=== PATIENT | male | born 1980 | race Caucasian/White ===

== ENCOUNTER 2017-08-23 15:38 | Emergency (ER) | payer MEDICAID ==
--- NOTE | 2017-08-23 17:09 | EDM.PDOC ---
ED HPI GENERAL MEDICAL PROBLEM - General Chief Complaint: Abdominal Pain Stated Complaint: ABDOMINAL PAIN Time Seen by Provider: 08/23/17 16:46 - History of Present Illness INITIAL COMMENTS - FREE TEXT/NARRATIVE: HISTORY AND PHYSICAL: History of present illness: The patient is a 37-year-old male with a history of a left pelvic kidney nephrectomy with postoperative complication which includes an unusual abdominal hernia in the inguinal area that has been recurrent. The patient had some surgery performed at [facility] after the nephrectomy which was done here and is scheduled to be seen on every 14 for preoperative evaluation for repair of this hernia. The patient has had a recent CAT scan performed on August 06 which I reviewed and saw Dr. Najera our urologist yesterday to discuss this recurrent hernia. According to the patient it slips in and out and he is usually able to reduce it but he is getting concerned because of the size and the discomfort associated with it. Patient was given Ono 5/325 which she took and he did not feel comfortable taking it as it made his next step and he felt worse after taking it and other body locations. Today the hernia slipped out and he was unable to get it back in which is why he presented to the ED but while in the waiting room he laid down and elevate his legs and was able to reduce the hernia. This is what he normally does to reduce the hernia patient is very frustrated as he wants to get this repaired. He has been eating and drinking normally and passing his urine without issues. Here in the ED he is asymptomatic. Review of systems: As per history of present illness and below otherwise all systems reviewed and negative. Past medical history: As per history of present illness and as reviewed below otherwise noncontributory. Surgical history: As per history of present illness and as reviewed below otherwise noncontributory. Social history: No reported history of drug or alcohol abuse. Family history: As per history of present illness and as reviewed below otherwise noncontributory. Physical exam: Gen.: Well-developed well-nourished man who is nontoxic vital signs been reviewed by me HEENT: Atraumatic, normocephalic, negative for conjunctival pallor or scleral icterus, mucous membranes moist, throat clear, neck supple, nontender, trachea midline. Lungs: Clear to auscultation, breath sounds equal bilaterally, chest nontender. Heart: S1S2, regular rate and rhythm no overt murmurs Abdomen: Soft, nondistended, nontender. NABS. Patient has a well-healed midabdominal scar which is nontender and has no evidence of any abdominal wall hernias. On palpation of the area there is no overt hernia appreciated or hernial defect and no tenderness to palpation. Pelvis: Stable nontender. Genitourinary: No hernial masses or defects appreciated in the left inguinal area which is the location of the patient's hernial problems. Testicles are descended bilaterally and are not swollen Rectal: Deferred. Extremities: Atraumatic, negative for cords or calf pain. Neurovascular unremarkable. Neuro: Awake, alert, oriented. Cranial nerves II through XII unremarkable. Cerebellum unremarkable. Motor and sensory unremarkable throughout. Exam nonfocal. Diagnostics: [] Therapeutics: [] 1654: Case was discussed with Dr. Louise who tells me that he is willing to do the repair here if the patient would like to do that otherwise he can proceed to go to [facility] as scheduled. I've inform the patient of this conversation and that there is no further testing or evaluation needs to be performed here. He is comfortable with this and will continue to reduce the hernia as needed and return here only if he is unable to do so. Impression: Recurrent inguinal hernia stable Definitive disposition and diagnosis as appropriate pending reevaluation and review of above. Left Lower Abdominal Pain Score (Numeric/FACES): 3 - Related Data Allergies Allergy/AdvReac Type Severity Reaction Status Date / Time No Known Allergies Allergy Verified 08/23/17 16:23 Home Meds: Home Meds Hydrocodone/Acetaminophen [Hydrocodon-Acetaminoph 7.5-325] 1 - 2 tab PO ASDIRECTED PRN 01/03/17 [History] Hydrocodone/Acetaminophen [Lorcet 5-325 mg Tablet] 1 each PO Q6H PRN #30 tablet 01/10/17 [Rx] Past Medical History Gastrointestinal History: Reports: GERD Genitourinary History: Reports: Other (See Below) Other Genitourinary History: kidney mass Musculoskeletal History: Reports: Fracture Other Musculoskeletal History: hx fx collarbone, rt hand, forearm and lt ankle Neurological History: Reports: Other (See Below) Other Neuro History: "possible concussion" - Past Surgical History Head Surgeries/Procedures: Reports: None GI Surgical History: Reports: Appendectomy Social & Family History - Family History Family Medical History: Noncontributory - Tobacco Use Smoking Status *Q: Former Smoker Years of Tobacco use: 10 Packs/Tins Daily: 0.1 Used Tobacco, but Quit: Yes Month Tobacco Last Used: jul 2017 - Caffeine Use Caffeine Use: Reports: None - Recreational Drug Use Recreational Drug Use: No Drug Use in Last 12 Months: Yes Recreational Drug Type: Reports: Marijuana/Hashish Recreational Drug Use Frequency: Socially Recreational Drug Last Use: 01/02/17 ED ROS GENERAL - Review of Systems Review Of Systems: ROS reveals no pertinent complaints other than HPI. ED EXAM, GENERAL - Physical Exam Exam: See Below (See dictation) Course - Vital Signs Last Recorded V/S: Last Vital Signs Temp 37.1 C 08/23/17 16:32 Pulse 86 08/23/17 16:32 Resp 18 08/23/17 16:32 BP 149/79 H 08/23/17 16:32 Pulse Ox 95 08/23/17 16:32 Departure - Departure Time of Disposition: 17:07 Disposition: Home, Self-Care 01 Condition: Good Clinical Impression: Inguinal hernia Qualifiers: Obstruction and gangrene presence: without obstruction or gangrene Laterality: unilateral Recurrence: recurrent Qualified Code(s): K40.91 - Unilateral inguinal hernia, without obstruction or gangrene, recurrent - Discharge Information Referrals: PCP,None [Primary Care Provider] - Additional Instructions: The following information is given to patients seen in the emergency department who are being discharged to home. This information is to outline your options for follow-up care. We provide all patients seen in our emergency department with a follow-up referral. The need for follow-up, as well as the timing and circumstances, are variable depending upon the specifics of your emergency department visit. If you don't have a primary care physician on staff, we will provide you with a referral. We always advise you to contact your personal physician following an emergency department visit to inform them of the circumstance of the visit and for follow-up with them and/or the need for any referrals to a consulting specialist. The emergency department will also refer you to a specialist when appropriate. This referral assures that you have the opportunity for followup care with a specialist. All of these measure are taken in an effort to provide you with optimal care, which includes your followup. Under all circumstances we always encourage you to contact your private physician who remains a resource for coordinating your care. When calling for followup care, please make the office aware that this follow-up is from your recent emergency room visit. If for any reason you are refused follow-up, please contact the [facility] emergency department at and ask to speak to the emergency department charge nurse. [facility] [place] [address] Najera's office on Friday to pursue operative for. This hernia here as you choose. Keep your appointments at [facility] you choose to pursue having the hernia repair there. Continue to reduce the hernia as you need and return to ER as needed and as discussed. Please use the muscle relaxers given to today as needed when the hernia recurs as it may assist with the discomfort and muscle relaxation to assist reduction area
[2017-08-23 17:22] VITALS: BP 136/87
== END 2017-08-23 17:16 | disposition home or self-care (01) ==
LOC: MW.ED 15:38
DX: K40.91 Unilateral inguinal hernia, without obstruction or gangrene, recurrent (principal); Z87.891 Personal history of nicotine dependence
CPT/HCPCS: 99282; 99283

== ENCOUNTER 2018-02-03 12:27 | Day surgery (SDC) | payer BC, MEDICAID ==
[~2018-02-03 12:27] MED LIST: Betamethasone Acetate/Betamethasone Sod Phosphate 30 MG/5 ML MDV ONE; Iopamidol 408 MG/ML 50 ML SDV ONE; Lidocaine 2% 5 ML SDV ONE; Ropivacaine 0.5% 5 MG/ML 30 ML SDV ONE
--- NOTE | 2018-02-04 09:25 | OR ---
SURGEON: Nury Amaya D.O. DATE OF PROCEDURE: 02/03/2018 OR STAFF PRESENT: 1. Sameer Moses RN. 2. Sameer Horowitz RN. 3. Mary Ann Raymond, RT. WOUND CLASSIFICATION: I. PREOPERATIVE DIAGNOSES: 1. Chronic pelvic pain. 2. 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 3. Inguinal neuralgia. 4. Neuropathic pain. POSTOPERATIVE DIAGNOSES: 1. Chronic pelvic pain. 2. 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 3. Inguinal neuralgia. 4. Neuropathic pain. PROCEDURES PERFORMED: 1. Caudal epidural steroid injection. 2. Fluoroscopic guidance for needle placement. 3. Local with oral valium for sedation. SCREENING QUESTIONS: The patient answered "no" to all of the following questions: 1. Are you allergic to latex? 2. Do you have a bleeding disorder? 3. Do you have any current local or systemic infections? 4. Are you taking any anti-inflammatories or blood thinners? 5. Do you have any joint replacements, heart valve replacements, or a pacemaker? DESCRIPTION OF PROCEDURE: The patient had the procedure thoroughly explained including all possible risks , benefits and alternatives. Consent was signed in my clinic indicating understanding and willingness to proceed. The patient presented to [facility] and was escorted to the dressing room to disrobe and change into a hospital gown. Preoperative vital signs were taken and stable. The patient reported that Valium was taken prior to the procedure. The patient was brought back to the procedure room and placed in the prone position on the procedure room table. A pillow was placed under the hips in order to flatten the lumbar lordosis. The back was prepped with ChloraPrep and sterilely draped. All personnel in the operating room were dressed in appropriate attire including surgical scrubs, head and shoe covers. This was to ensure sterility while in the treatment room. During the time fluoroscopy was in use, all personnel in the operating room wore lead robins with thyroid collars. Sterile technique was used throughout the procedure. The patient was awake and conversant throughout the procedure. There was no evidence of infection at the site of needle insertion. Skeletal landmarks were identified under fluoroscopy for the lumbar epidural. Skin was anesthetized with 2% lidocaine with a sterile 27-gauge 1.5 inch needle. Then a 20-gauge Tuohy epidural needle was placed in the epidural space with loss of resistance technique under fluoroscopic guidance. No heme, cerebrospinal fluid, or paresthesias were noted. Isovue-200 contrast dye was injected in 0.2 cubic centimeter increments and seen to outline the epidural space in both AP and lateral views. There was no intravascular flow pattern observed under live fluoroscopy. Then 12 milligrams of Celestone was slowly injected after negative aspiration. The patient tolerated the procedure well. Vital signs were stable during and after the procedure. The staff escorted the patient to the recovery area and the patient was released in stable condition after a brief stay in the recovery room monitored by the nurse. The patient was given both oral and written discharge and follow up instructions with recommendation to follow up given for 2-3 weeks. The patient voiced understanding including understanding of those signs and symptoms that would require emergency care. The patient knows how to contact the office if there are any additional problems or questions in the meantime. PREOPERATIVE PAIN: 8/10. POSTOPERATIVE PAIN: 2/10. FOLLOWUP: In the pain clinic in 3 weeks. MAXIMO / LIMA /[id number] [email or web address]
== END 2018-02-03 14:00 | disposition home or self-care (01) ==
LOC: MW.SDS 12:27
PROVIDERS: ATTEND Anesthesiology
DX: G89.29 Other chronic pain (principal); R10.2 Pelvic and perineal pain; G57.82 Other specified mononeuropathies of left lower limb; I10 Essential (primary) hypertension; F17.210 Nicotine dependence, cigarettes, uncomplicated
CPT/HCPCS: 62323; J0702; J2795; Q9966

== ENCOUNTER 2018-03-12 11:57 | Day surgery (SDC) | payer BC, MEDICAID ==
[2018-03-12] MEDS ORDERED: Betamethasone Acetate/Betamethasone Sod Phosphate 30 MG/5 ML MDV ONE (14:37)
[2018-03-12] MEDS ORDERED: Iopamidol 408 MG/ML 50 ML SDV ONE (14:37)
[2018-03-12] MEDS ORDERED: Lidocaine 2% 5 ML SDV ONE (14:37)
[2018-03-12] MEDS ORDERED: Ropivacaine 0.5% 5 MG/ML 30 ML SDV ONE (14:37)
[2018-03-12] MEDS ORDERED: Sodium Bicarbonate 8.4% 50 MEQ/50 ML SDV ONE (14:37)
--- NOTE | 2018-03-12 16:44 | OR ---
SURGEON: Nury Amaya D.O. DATE OF PROCEDURE: 03/12/2018 OR STAFF PRESENT: 1. Sydnee Moses RN. 2. Imer Reardon RN. 3. RT Navid. WOUND CLASSIFICATION: I. PREOPERATIVE DIAGNOSES: 1. Lumbar degenerative disk disease. 2. Lumbar herniated disk. 3. Lumbar radiculopathy, chronic. 4. Male perineum pain. 5. Chronic neuropathic pain syndrome. POSTOPERATIVE DIAGNOSES: 1. Lumbar degenerative disk disease. 2. Lumbar herniated disk. 3. Lumbar radiculopathy, chronic. 4. Male perineum pain. 5. Chronic neuropathic pain syndrome. PROCEDURES PERFORMED: 1. Lumbar interlaminar epidural steroid injection at L4-5. 2. Fluoroscopic guidance for needle placement. 3. Local with oral valium for sedation. SCREENING QUESTIONS: The patient answered "no" to all of the following questions: 1. Are you allergic to latex? 2. Do you have a bleeding disorder? 3. Do you have any current local or systemic infections? 4. Are you taking any anti-inflammatories or blood thinners? 5. Do you have any joint replacements, heart valve replacements, or a pacemaker? DESCRIPTION OF PROCEDURE: The patient had the procedure thoroughly explained including all possible risks, benefits and alternatives. Consent was signed in my clinic indicating understanding and willingness to proceed. The patient presented to [facility] and was escorted to the dressing room to disrobe and change into a hospital gown. Preoperative vital signs were taken and stable. The patient reported that Valium was taken prior to the procedure. The patient was brought back to the procedure room and placed in the prone position on the procedure room table. A pillow was placed under the hips in order to flatten the lumbar lordosis. The back was prepped with ChloraPrep and sterilely draped. All personnel in the operating room were dressed in appropriate attire including surgical scrubs, head and shoe covers. This was to ensure sterility while in the treatment room. During the time fluoroscopy was in use, all personnel in the operating room wore lead robins with thyroid collars. Sterile technique was used throughout the procedure. The patient was awake and conversant throughout the procedure. There was no evidence of infection at the site of needle insertion. Skeletal landmarks were identified under fluoroscopy for the lumbar epidural. Skin was anesthetized with 2% lidocaine with a sterile 27-gauge 1.5 inch needle. Then, a 20-gauge Tuohy epidural needle was placed in the epidural space with loss of resistance technique under fluoroscopic guidance. No heme, cerebrospinal fluid, or paresthesias were noted. Isovue-200 contrast dye was injected in 0.2 cubic centimeter increments and seen to outline the epidural space in both AP and lateral views. There was no intravascular flow pattern observed under live fluoroscopy. Then, 12 milligrams of Celestone was slowly injected after negative aspiration. The patient tolerated the procedure well. Vital signs were stable during and after the procedure. The staff escorted the patient to the recovery area and the patient was released in stable condition after a brief stay in the recovery room monitored by the nurse. The patient was given both oral and written discharge and follow up instructions with recommendation to follow up given for 2-3 weeks. The patient voiced understanding including understanding of those signs and symptoms that would require emergency care. The patient knows how to contact the office if there are any additional problems or questions in the meantime. PREOPERATIVE PAIN: 8/10. POSTOPERATIVE PAIN: 2/10. FOLLOWUP: Follow up in the pain clinic in 3 weeks. MAXIMO / LIMA /[id number]
== END 2018-03-12 14:00 | disposition home or self-care (01) ==
LOC: MW.SDS 11:57
PROVIDERS: ATTEND Anesthesiology
DX: M51.16 Intervertebral disc disorders with radiculopathy, lumbar region (principal); M79.2 Neuralgia and neuritis, unspecified; M47.816 Spondylosis without myelopathy or radiculopathy, lumbar region; R10.2 Pelvic and perineal pain; M47.894 Other spondylosis, thoracic region; M51.37 Other intervertebral disc degeneration, lumbosacral region; I10 Essential (primary) hypertension; F17.210 Nicotine dependence, cigarettes, uncomplicated; G47.30 Sleep apnea, unspecified; K21.9 Gastro-esophageal reflux disease without esophagitis; F41.9 Anxiety disorder, unspecified; Z79.899 Other long term (current) drug therapy
CPT/HCPCS: 62323; J0702; J2795; Q9966

== ENCOUNTER 2018-10-20 11:57 | Day surgery (SDC) | payer BC ==
[2018-10-20] MEDS ORDERED: Lidocaine 2% 5 ML SDV ONE (12:00)
[2018-10-20] MEDS ORDERED: Ropivacaine 0.5% 5 MG/ML 30 ML SDV ONE (12:00)
[2018-10-20] MEDS ORDERED: Betamethasone Acetate/Betamethasone Sod Phosphate 30 MG/5 ML MDV ONE (12:00)
[2018-10-20] MEDS ORDERED: Iopamidol 408 MG/ML 50 ML SDV ONE (12:01)
--- NOTE | 2018-10-20 16:42 | OR ---
SURGEON: Nury Amaya D.O. DATE OF PROCEDURE: 10/20/2018 OR STAFF PRESENT: 1. Luz Elena Clement RN. 2. Sydnee Henson RN. 3. Alissa Eastman RT. PREOPERATIVE DIAGNOSIS: Lumbar degenerative disk disease at L4-5,L5-S1. Lumbar spondylosis Chronic low back pain POSTOPERATIVE DIAGNOSIS: same PROCEDURES PERFORMED: 1. Lumbar epidural steroid injection, interlaminar, at L4-5. 2. Fluoroscopic guidance for needle placement. 3. Local with oral Valium for sedation. SCREENING QUESTIONS: The patient answered "no" to all of the following questions: 1. Are you allergic to latex? 2. Do you have a bleeding disorder? 3. Do you have any current local or systemic infections? 4. Are you taking any anti-inflammatories or blood thinners? 5. Do you have any joint replacements, heart valve replacements, or a pacemaker? DESCRIPTION OF PROCEDURE: The patient had the procedure thoroughly explained including all possible risks, benefits and alternatives. Consent was signed in my clinic indicating understanding and willingness to proceed. The patient presented to [facility] and was escorted to the dressing room to disrobe and change into a hospital gown. Preoperative vital signs were taken and stable. The patient reported that Valium was taken prior to the procedure. The patient was brought back to the procedure room and placed in the prone position on the procedure room table. A pillow was placed under the hips in order to flatten the lumbar lordosis. The back was prepped with ChloraPrep and sterilely draped. All personnel in the operating room were dressed in appropriate attire including surgical scrubs, head and shoe covers. This was to ensure sterility while in the treatment room. During the time fluoroscopy was in use, all personnel in the operating room wore lead robins with thyroid collars. Sterile technique was used throughout the procedure. The patient was awake and conversant throughout the procedure. There was no evidence of infection at the site of needle insertion. Skeletal landmarks were identified under fluoroscopy for the lumbar epidural. Skin was anesthetized with 2% lidocaine with a sterile 27-gauge 1.5 inch needle. Then a 20-gauge Tuohy epidural needle was placed in the epidural space with loss of resistance technique under fluoroscopic guidance. No heme, cerebrospinal fluid, or paresthesias were noted. Isovue-200 contrast dye was injected in 0.2 cubic centimeter increments and seen to outline the epidural space in both AP and lateral views. There was no intravascular flow pattern observed under live fluoroscopy. Then 12 milligrams of Celestone was slowly injected after negative aspiration. The patient tolerated the procedure well. Vital signs were stable during and after the procedure. The staff escorted the patient to the recovery area and the patient was released in stable condition after a brief stay in the recovery room monitored by the nurse. The patient was given both oral and written discharge and follow up instructions with recommendation to follow up given for 2-3 weeks. The patient voiced understanding including understanding of those signs and symptoms that would require emergency care. The patient knows how to contact the office if there are any additional problems or questions in the meantime. PREOPERATIVE PAIN: 7/10. POSTOPERATIVE PAIN: /10. FOLLOWUP: Follow up in the Pain Clinic in 3 weeks. MAXIMO / LIMA /[id number] [email or web address]
== END 2018-10-20 13:55 | disposition home or self-care (01) ==
LOC: MW.SDS 11:57
PROVIDERS: ATTEND Anesthesiology
DX: M51.16 Intervertebral disc disorders with radiculopathy, lumbar region (principal); M79.18 Myalgia, other site; M47.26 Other spondylosis with radiculopathy, lumbar region; M79.2 Neuralgia and neuritis, unspecified; F17.210 Nicotine dependence, cigarettes, uncomplicated; K21.9 Gastro-esophageal reflux disease without esophagitis; F41.9 Anxiety disorder, unspecified
CPT/HCPCS: 62323; J0702; J2795; Q9966; J2001

== ENCOUNTER 2019-02-23 10:42 | Emergency (ER) | payer SELFPAY ==
[2019-02-23] MEDS ORDERED: Lidocaine 2% Viscous Solution 15 ML Cup PO ONE (11:03)
[2019-02-23] MEDS ORDERED: Benzocaine 20% Topical Spray UD MUCMEM ONE (11:03)
--- NOTE | 2019-02-23 11:09 | EDM.PDOC ---
ED HPI GENERAL MEDICAL PROBLEM - General Chief Complaint: General Stated Complaint: TOOTH ACHE Time Seen by Provider: 02/23/19 11:00 Source of Information: Reports: Patient History Limitations: Reports: No Limitations - History of Present Illness INITIAL COMMENTS - FREE TEXT/NARRATIVE: History of present illness: []Patient has chronic recurrent pain in a decayed tooth he is unable to have removed due to lack of funding. Patient states that he's had recurrent pain and knows that his face will swell within 24 hours if he doesn't receive antibiotics. At this time denies any fevers or chills. Review of systems: As per history of present illness and below otherwise all systems reviewed and negative. Past medical history: As per history of present illness and as reviewed below otherwise noncontributory. Surgical history: As per history of present illness and as reviewed below otherwise noncontributory. Social history: No reported history of drug or alcohol abuse. Family history: As per history of present illness and as reviewed below otherwise noncontributory. Physical exam: General: Well developed, well nourished in NAD HEENT: DK, normocephalic, pupils reactive, negative for conjunctival pallor or scleral icterus, mucous membranes moist, throat clear, neck supple, nontender, trachea midline. Lungs: Clear to auscultation, breath sounds equal bilaterally, chest nontender. Heart: S1S2, regular, negative for clicks, rubs, or JVD. Abdomen: NABS, Soft, nondistended, nontender. Negative for masses or hepatosplenomegaly. Negative for costovertebral tenderness. Pelvis: Stable nontender. Genitourinary: Deferred. Rectal: Deferred. Extremities: Atraumatic, negative for cords or calf pain. Neurovascular unremarkable. Neuro: Awake, alert, oriented. Cranial nerves II through XII unremarkable. Cerebellum unremarkable. Motor and sensory unremarkable throughout. Exam nonfocal. Skin:warm and dry Diagnostics: None Therapeutics: None ED Course: Stable Impression: Chronic Dental pain Prescriptions: Penicillin, dental balls Plan: Follow-up with primary care Definitive disposition and diagnosis as appropriate pending reevaluation and review of above. Teeth Pain Score (Numeric/FACES): 7 - Related Data Allergies Allergy/AdvReac Type Severity Reaction Status Date / Time No Known Allergies Allergy Verified 07/08/18 15:52 Home Meds: Home Meds Gabapentin [Neurontin] 300 mg PO QID 07/08/18 [History] Mirtazapine [Remeron] 15 mg PO BEDTIME 07/08/18 [History] Penicillin V Potassium 500 mg PO Q6HR #40 tab 02/23/19 [Rx] Past Medical History Gastrointestinal History: Reports: GERD Genitourinary History: Reports: Other (See Below) Other Genitourinary History: kidney mass Musculoskeletal History: Reports: Fracture Other Musculoskeletal History: hx fx collarbone, rt hand, forearm and lt ankle Neurological History: Reports: Other (See Below) Other Neuro History: "possible concussion" - Infectious Disease History Infectious Disease History: Reports: None - Past Surgical History Head Surgeries/Procedures: Reports: None HEENT Surgical History: Reports: Oral Surgery GI Surgical History: Reports: Appendectomy, Hernia Repair/Other Male Surgical History: Reports: Kidney Stone Extraction, Lithotripsy (ESWL) Social & Family History - Family History Family Medical History: Noncontributory - Caffeine Use Caffeine Use: Reports: Other Caffeine Use Comment: Very rare caffeine use - Recreational Drug Use Recreational Drug Use: No ED ROS GENERAL - Review of Systems Review Of Systems: See Below ED EXAM, GENERAL - Physical Exam Exam: See Below (History of present illness) Course - Vital Signs Last Recorded V/S: Last Vital Signs Temp 97.3 F 02/23/19 10:51 Pulse 91 02/23/19 10:51 Resp 17 02/23/19 10:51 BP 137/91 H 02/23/19 10:51 Pulse Ox 97 02/23/19 10:51 Departure - Departure Time of Disposition: 11:09 Disposition: Home, Self-Care 01 Condition: Good Clinical Impression: Chronic dental pain - Discharge Information *PRESCRIPTION DRUG MONITORING PROGRAM REVIEWED*: No *COPY OF PRESCRIPTION DRUG MONITORING REPORT IN PATIENT CRISTINA: No Prescriptions: Penicillin V Potassium 500 mg PO Q6HR #40 tab Referrals: PCP,None [Primary Care Provider] - Additional Instructions: The following information is given to patients seen in the emergency department who are being discharged to home. This information is to outline your options for follow-up care. We provide all patients seen in our emergency department with a follow-up referral. The need for follow-up, as well as the timing and circumstances, are variable depending upon the specifics of your emergency department visit. If you don't have a primary care physician on staff, we will provide you with a referral. We always advise you to contact your personal physician following an emergency department visit to inform them of the circumstance of the visit and for follow-up with them and/or the need for any referrals to a consulting specialist. The emergency department will also refer you to a specialist when appropriate. This referral assures that you have the opportunity for follow-up care with a specialist. All of these measure are taken in an effort to provide you with optimal care, which includes your follow-up. Under all circumstances we always encourage you to contact your private physician who remains a resource for coordinating your care. When calling for follow-up care, please make the office aware that this follow-up is from your recent emergency room visit. If for any reason you are refused follow-up, please contact the [facility] Emergency Department at and asked to speak to the emergency department charge nurse. [facility] [address] [place] [phone]
[2019-02-23 11:19] VITALS: BP 142/83; PULSE 94
== END 2019-02-23 11:19 | disposition home or self-care (01) ==
LOC: MW.ED 10:42
DX: K08.89 Other specified disorders of teeth and supporting structures (principal); G89.29 Other chronic pain
CPT/HCPCS: 99282; A9270

== ENCOUNTER 2021-05-21 19:57 | Emergency (ER) | payer SELFPAY ==
--- NOTE | 2021-05-21 20:11 | EDM.PDOC ---
ED HPI GENERAL MEDICAL PROBLEM - General Chief Complaint: Behavioral/Psych Stated Complaint: EMS Time Seen by Provider: 05/21/21 19:59 Source of Information: Reports: Patient History Limitations: Reports: Intoxication - History of Present Illness INITIAL COMMENTS - FREE TEXT/NARRATIVE: Patient is a 41-year-old male who is brought in by EMS after his brother found him on the floor. Patient states has been drinking all day. Patient was taking medication but stopped because he no longer feels he was to take those meds because he does not really make him feel. Patient unsure if he hit his head or not. He states he did have a large amount alcohol more than he normally drinks. Patient denies any pain now patient is only ANO x1 but denies any medical complaints. - Related Data Allergies Allergy/AdvReac Type Severity Reaction Status Date / Time No Known Allergies Allergy Verified 05/21/21 20:11 Home Meds: Home Meds Desvenlafaxine Succinate [Desvenlafaxine Succinate ER] 100 mg PO DAILY 05/21/21 [History] LORazepam [Lorazepam] 2 mg PO DAILY 05/21/21 [History] Zolpidem Tartrate 10 mg PO DAILY 05/21/21 [History] carBAMazepine [Carbamazepine] 100 mg PO DAILY 05/21/21 [History] Past Medical History Gastrointestinal History: Reports: GERD Genitourinary History: Reports: Other (See Below) Other Genitourinary History: kidney mass Musculoskeletal History: Reports: Fracture Other Musculoskeletal History: hx fx collarbone, rt hand, forearm and lt ankle Neurological History: Reports: Other (See Below) Other Neuro History: "possible concussion" - Infectious Disease History Infectious Disease History: Reports: None - Past Surgical History Head Surgeries/Procedures: Reports: None HEENT Surgical History: Reports: Oral Surgery GI Surgical History: Reports: Appendectomy, Hernia Repair/Other Male Surgical History: Reports: Kidney Stone Extraction, Lithotripsy (ESWL) Social & Family History - Family History Family Medical History: No Pertinent Family History - Caffeine Use Caffeine Use: Reports: Other Caffeine Use Comment: Very rare caffeine use ED ROS GENERAL - Review of Systems Review Of Systems: See Below Constitutional: Reports: No Symptoms HEENT: Reports: No Symptoms Respiratory: Reports: No Symptoms Cardiovascular: Reports: No Symptoms Endocrine: Reports: No Symptoms GI/Abdominal: Reports: No Symptoms : Reports: No Symptoms Musculoskeletal: Reports: No Symptoms Skin: Reports: No Symptoms Neurological: Reports: No Symptoms Psychiatric: Reports: No Symptoms Hematologic/Lymphatic: Reports: No Symptoms Immunologic: Reports: No Symptoms ED EXAM, GENERAL - Physical Exam Exam: See Below Exam Limited By: Intoxication General Appearance: Alert, No Apparent Distress Eye Exam: Bilateral Eye: EOMI, PERRL Ears: Normal External Exam Head: Atraumatic Respiratory/Chest: No Respiratory Distress, Lungs Clear, Normal Breath Sounds Cardiovascular: Normal Peripheral Pulses, Regular Rate, Rhythm GI/Abdominal: Normal Bowel Sounds, Soft, Non-Tender Extremities: Normal Inspection Neurological: Alert, Normal Gait, No Motor/Sensory Deficits #1 Interpretation EKG Date: 05/21/21 Time: 20:58 Rhythm: NSR Rate (Beats/Min): 81 ST-T: Normal Course - Vital Signs Last Recorded V/S: Last Vital Signs Temp 98.5 F 05/21/21 20:12 Pulse 92 05/21/21 21:03 Resp 18 05/21/21 21:03 BP 141/87 H 05/21/21 21:03 Pulse Ox 97 05/21/21 21:03 - Orders/Labs/Meds Labs: Laboratory Tests 05/21/21 05/21/21 05/21/21 Range/Units 20:17 20:17 20:17 WBC 5.54 (4.0-11.0) K/uL RBC 4.47 L (4.50-5.90) M/uL Hgb 14.0 (13.0-17.0) g/dL Hct 40.4 (38.0-50.0) % MCV 90.4 (80.0-98.0) fL MCH 31.3 (27.0-32.0) pg MCHC 34.7 (31.0-37.0) g/dL RDW Std Deviation 44.2 (28.0-62.0) fl RDW Coeff of Susanne 13 (11.0-15.0) % Plt Count 331 (150-400) K/uL MPV 9.40 (7.40-12.00) fL Neut % (Auto) 44.4 L (48.0-80.0) % Lymph % (Auto) 46.0 H (16.0-40.0) % [place] % (Auto) 7.4 (0.0-15.0) % Eos % (Auto) 2.0 (0.0-7.0) % Baso % (Auto) 0.2 (0.0-1.5) % Neut # (Auto) 2.5 (1.4-5.7) K/uL Lymph # (Auto) 2.6 H (0.6-2.4) K/uL [place] # (Auto) 0.4 (0.0-0.8) K/uL Eos # (Auto) 0.1 (0.0-0.7) K/uL Baso # (Auto) 0.0 (0.0-0.1) K/uL Nucleated RBC % 0.0 /100WBC Nucleated RBCs # 0 K/uL Sodium 138 (136-148) mmol/L Potassium 3.4 L (3.5-5.1) mmol/L Chloride 100 (98-107) mmol/L Carbon Dioxide 28.9 (21.0-32.0) mmol/L BUN 13 (7.0-18.0) mg/dL Creatinine 0.9 (0.8-1.3) mg/dL Est Cr Clr Drug Dosing TNP Estimated GFR (MDRD) > 60.0 ml/min Glucose 112 H (74-106) mg/dL Calcium 8.3 L (8.5-10.1) mg/dL Total Bilirubin 0.2 (0.2-1.0) mg/dL AST 14 L (15-37) IU/L ALT 33 (14-63) IU/L Alkaline Phosphatase 59 (46-116) U/L Troponin I < 0.050 (0.000-0.056) ng/mL Total Protein 7.5 (6.4-8.2) g/dL Albumin 4.1 (3.4-5.0) g/dL Globulin 3.4 (2.6-4.0) g/dL Albumin/Globulin Ratio 1.2 (0.9-1.6) Urine Opiates Screen (NEGATIVE) Ur Oxycodone Screen (NEGATIVE) Urine Methadone Screen (NEGATIVE) Ur Barbiturates Screen (NEGATIVE) Ur Phencyclidine Scrn (NEGATIVE) Ur Amphetamine Screen (NEGATIVE) U Methamphetamines Scrn (NEGATIVE) U Benzodiazepines Scrn (NEGATIVE) U Cocaine Metab Screen (NEGATIVE) U Marijuana (THC) Screen (NEGATIVE) Ethyl Alcohol 244 mg/dL 05/21/21 Range/Units 21:20 WBC (4.0-11.0) K/uL RBC (4.50-5.90) M/uL Hgb (13.0-17.0) g/dL Hct (38.0-50.0) % MCV (80.0-98.0) fL MCH (27.0-32.0) pg MCHC (31.0-37.0) g/dL RDW Std Deviation (28.0-62.0) fl RDW Coeff of Susanne (11.0-15.0) % Plt Count (150-400) K/uL MPV (7.40-12.00) fL Neut % (Auto) (48.0-80.0) % Lymph % (Auto) (16.0-40.0) % [place] % (Auto) (0.0-15.0) % Eos % (Auto) (0.0-7.0) % Baso % (Auto) (0.0-1.5) % Neut # (Auto) (1.4-5.7) K/uL Lymph # (Auto) (0.6-2.4) K/uL [place] # (Auto) (0.0-0.8) K/uL Eos # (Auto) (0.0-0.7) K/uL Baso # (Auto) (0.0-0.1) K/uL Nucleated RBC % /100WBC Nucleated RBCs # K/uL Sodium (136-148) mmol/L Potassium (3.5-5.1) mmol/L Chloride (98-107) mmol/L Carbon Dioxide (21.0-32.0) mmol/L BUN (7.0-18.0) mg/dL Creatinine (0.8-1.3) mg/dL Est Cr Clr Drug Dosing Estimated GFR (MDRD) ml/min Glucose (74-106) mg/dL Calcium (8.5-10.1) mg/dL Total Bilirubin (0.2-1.0) mg/dL AST (15-37) IU/L ALT (14-63) IU/L Alkaline Phosphatase (46-116) U/L Troponin I (0.000-0.056) ng/mL Total Protein (6.4-8.2) g/dL Albumin (3.4-5.0) g/dL Globulin (2.6-4.0) g/dL Albumin/Globulin Ratio (0.9-1.6) Urine Opiates Screen NEGATIVE (NEGATIVE) Ur Oxycodone Screen NEGATIVE (NEGATIVE) Urine Methadone Screen NEGATIVE (NEGATIVE) Ur Barbiturates Screen NEGATIVE (NEGATIVE) Ur Phencyclidine Scrn NEGATIVE (NEGATIVE) Ur Amphetamine Screen NEGATIVE (NEGATIVE) U Methamphetamines Scrn NEGATIVE (NEGATIVE) U Benzodiazepines Scrn NEGATIVE (NEGATIVE) U Cocaine Metab Screen NEGATIVE (NEGATIVE) U Marijuana (THC) Screen NEGATIVE (NEGATIVE) Ethyl Alcohol mg/dL - Re-Assessments/Exams Free Text/Narrative Re-Assessment/Exam: 05/21/21 22:19 Patient alcohol level was elevated. Patient is back to baseline is ANO x3 patient brother at bedside to and confirmed patient was back to normal. Patient will be discharged in custody of his brother. Departure - Departure Time of Disposition: 22:19 Disposition: Home, Self-Care 01 Condition: Good Clinical Impression: AMS (altered mental status) - Discharge Information *PRESCRIPTION DRUG MONITORING PROGRAM REVIEWED*: Not Applicable *COPY OF PRESCRIPTION DRUG MONITORING REPORT IN PATIENT CRISTINA: Not Applicable Instructions: Delirium Forms: ED Department Discharge Additional Instructions: The following information is given to patients seen in the emergency department who are being discharged to home. This information is to outline your options for follow-up care. We provide all patients seen in our emergency department with a follow-up referral. The need for follow-up, as well as the timing and circumstances, are variable depending upon the specifics of your emergency department visit. If you don't have a primary care physician on staff, we will provide you with a referral. We always advise you to contact your personal physician following an emergency department visit to inform them of the circumstance of the visit and for follow-up with them and/or the need for any referrals to a consulting specialist. The emergency department will also refer you to a specialist when appropriate. This referral assures that you have the opportunity for follow-up care with a specialist. All of these measure are taken in an effort to provide you with optimal care, which includes your follow-up. Under all circumstances we always encourage you to contact your private physician who remains a resource for coordinating your care. When calling for follow-up care, please make the office aware that this follow-up is from your recent emergency room visit. If for any reason you are refused follow-up, please contact the [facility] Emergency Department at and asked to speak to the emergency department charge nurse. Please follow up with your primary care physician. If you do not have a primary care physician, see below: [facility] [address] [address] [facility] [address] [place] [address] You were seen today for episode of confusion. Your alcohol level was elevated likely contributing to the confusion. We did a CT scan of the head also urine drug test are all within normal range. We recommend you continue to follow with your primary care physician if you have any other concerning signs or symptoms please feel free to return to the ED. Sepsis Event Note (ED) - Focused Exam Vital Signs: Vital Signs Temp Pulse Resp BP Pulse Ox 05/21/21 21:03 92 18 141/87 H 97 05/21/21 20:12 98.5 F 98 16 148/94 H 98 - Assessment/Plan Plan: Patient is a 41-year-old male brought in by EMS for possible alcohol intoxication. Patient was found on the floor unconscious by his brother. Patient states that he was drinking more than normal. 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 Will observe patient obtain labs EKG CT and reassess.
--- NOTE | 2021-05-21 20:36 | CT ---
INDICATION: Fall TECHNIQUE: CT head without contrast. COMPARISON: 09/05/2020 FINDINGS: CSF spaces: Within normal limits for age. Brain parenchyma: The carter-white differentiation is normal. No sign of mass, hemorrhage, or midline shift. Skull base and calvarium: The visualized paranasal sinuses and mastoid air cells demonstrate no acute or significant findings. The visualized orbits are grossly unremarkable. No skull fractures. IMPRESSION: Atraumatic appearance of the brain. Please note that all CT scans at this facility use dose modulation, iterative reconstruction, and/or weight-based dosing when appropriate to reduce radiation dose to as low as reasonably achievable. Dictated by Kobi Pagan MD @ 05/21/2021 8:35:46 PM (Electronically Signed)
[2021-05-21 20:43] LABS: BLOOD UREA NITROGEN,BUN 13 mg/dL (7.0-18.0); CARBON DIOXIDE,CO2 28.9 mmol/L (21.0-32.0); CHLORIDE,CL 100 mmol/L (98-107); GLUCOSE RANDOM 112 mg/dL (74-106); POTASSIUM,K 3.4 mmol/L (3.5-5.1); SODIUM,NA 138 mmol/L (136-148)
[2021-05-21 23:01] VITALS: BP 139/82; PULSE 88
== END 2021-05-21 22:40 | disposition home or self-care (01) ==
LOC: MW.ED 19:57
DX: R41.82 Altered mental status, unspecified (principal)
CPT/HCPCS: 36415; 70450; 70450-26; 80053; 80305-QW; 80307; 84484; 85025; 93005; 99285-25